=== PATIENT | male | born 1940 | race Caucasian/White ===

== ENCOUNTER 2020-09-24 12:24 | Inpatient (IN) | payer MEDICAID, OTHER ==
[~2020-09-24] VITALS: Ht 188 cm; Wt 101.9 kg
[2020-09-24] VITALS: BP 133/84
[2020-09-24] MEDS ORDERED: LEVETIRACETAM 500MG PREMIX 100 ML IV ONE (12:45)
[2020-09-24] MEDS ORDERED: LORAZEPAM 2MG/ML CPJ IV ONE (13:00)
[2020-09-24 13:17] LABS: BASOPHILS % 0.3 % (0.0-2.0); EOSINOPHILS % 1.5 % (0.0-5.0); HEMATOCRIT. 39.8 % (42.0-52.0); HEMOGLOBIN. 13.7 g/dL (14.0-18.0); LYMPHOCYTES % 19.1 % (20.0-50.0); MEAN CORPUSCULAR HEMOGLOBIN 30.2 pg (28.0-32.0); MEAN PLATELET VOLUME 7.8 fl (7.4-10.4); MONOCYTES % 6.9 % (2.0-8.0); NEUTROPHILS % 72.2 % (40.0-76.0); PLATELET 229 x1000/uL (130-400); RED BLOOD CELL COUNT 4.52 mill/uL (4.7-6.1); RED CELL DISTRIBUTION WIDTH 13.7 % (11.6-14.6)
[2020-09-24 13:23] LABS: CHLORIDE 107 mEq/L (98-107)
[2020-09-24 13:31] LABS: LDL CHOLESTEROL 126 mg/dL (5-100)
[2020-09-24 13:33] LABS: PARTIAL THROMBOPLASTIN TIME 26.2 sec (23.4-31.0); PROTHROMBIN TIME 11.2 sec (9.6-11.0)
[2020-09-24] MEDS ORDERED: IOHEXOL-350 100 ML BOTTLE ONE (14:40)
[2020-09-24] MEDS ORDERED: HYDRALAZINE 20MG/ML VIAL IV ONE (16:30)
[2020-09-24] MEDS ORDERED: HYDROCODONE/ACETAMINOPHEN 5/325MG TABLET PO PRN (17:15)
[2020-09-24] MEDS ORDERED: DIPHENHYDRAMINE 50MG/ML VIAL IV PRN (17:15)
[2020-09-24] MEDS ORDERED: IPRATROPIUM/ALBUTEROL 0.5-3(2.5)MG/3ML NEB HHN PRN (17:15)
[2020-09-24] MEDS ORDERED: ACETAMINOPHEN 325MG TABLET PO PRN (17:15)
[2020-09-24] MEDS ORDERED: ONDANSETRON HCL 4MG/2ML INJ IV PRN (17:15)
[2020-09-24] MEDS ORDERED: GUAIFENESIN 200MG/10ML SUGAR FREE UDC PO PRN (17:15)
[2020-09-24] MEDS ORDERED: LORAZEPAM 2MG/ML CPJ IV PRN (17:15)
[2020-09-24] MEDS ORDERED: CLONIDINE 0.1MG TABLET PO PRN (17:15)
[2020-09-24] MEDS ORDERED: HYDRALAZINE 20MG/ML VIAL IV PRN (17:15)
[2020-09-24] MEDS ORDERED: MORPHINE SULFATE 2 MG/ML CPJ (NOT FOR IM USE) IV PRN (17:15)
[2020-09-24] MEDS ORDERED: MAGNESIUM/ALUMINUM HYDROXIDE/SIMETHICONE 30ML UDC PO PRN (17:15)
[2020-09-24] MEDS ORDERED: DOCUSATE SODIUM 100MG CAPSULE PO PRN (17:15)
[2020-09-24] MEDS: ENOXAPARIN 40MG/0.4ML SYR SUBCUT SCH (18:00)
[2020-09-24] MEDS: LEVETIRACETAM 500MG TABLET PO SCH (21:36)
[2020-09-24] MEDS: SODIUM CHLORIDE 0.9% INJ 3ML FLUSH IVF SCH (22:52)
[2020-09-24 23:00] VITALS: BP 133/84
[2020-09-25] VITALS: BP 133/84
[2020-09-25 04:00] VITALS: BP 118/69
[2020-09-25] MEDS: SODIUM CHLORIDE 0.9% INJ 3ML FLUSH IVF SCH ×3 (05:24→20:48)
[2020-09-25 07:28] LABS: CHLORIDE 109 mEq/L (98-107)
[2020-09-25 07:34] LABS: BASOPHILS % 0.4 % (0.0-2.0); EOSINOPHILS % 2.5 % (0.0-5.0); HEMATOCRIT. 37.8 % (42.0-52.0); LYMPHOCYTES % 23.1 % (20.0-50.0); MEAN CORPUSCULAR VOLUME 86.9 fL (80.0-94.0); MEAN PLATELET VOLUME 8.3 fl (7.4-10.4); MONOCYTES % 9.6 % (2.0-8.0); NEUTROPHILS % 64.4 % (40.0-76.0); PLATELET 218 x1000/uL (130-400); RED BLOOD CELL COUNT 4.35 mill/uL (4.7-6.1); RED CELL DISTRIBUTION WIDTH 13.5 % (11.6-14.6)
[2020-09-25 07:42] LABS: CREATINE KINASE 35 IU/L (39-308)
[2020-09-25 07:45] LABS: CREATINE KINASE MB FRACTION < 1.0 ng/mL (0.5-3.6)
[2020-09-25 08:00] VITALS: BP 111/77
[2020-09-25] MEDS: LEVETIRACETAM 500MG TABLET PO SCH ×2 (08:47→20:48)
[2020-09-25 12:00] VITALS: BP 102/66
[2020-09-25 16:00] VITALS: BP 104/64
[2020-09-25] MEDS: ENOXAPARIN 40MG/0.4ML SYR SUBCUT SCH (18:46)
[2020-09-25 20:00] VITALS: BP 119/71
[2020-09-26] VITALS: BP 108/64
[2020-09-26 04:00] VITALS: BP 108/67
[2020-09-26 06:08] LABS: CHLORIDE 107 mEq/L (98-107)
[2020-09-26 06:16] LABS: BASOPHILS % 0.7 % (0.0-2.0); HEMATOCRIT. 37.4 % (42.0-52.0); LYMPHOCYTES % 21.6 % (20.0-50.0); MEAN CORPUSCULAR HEMOGLOBIN 30.4 pg (28.0-32.0); MEAN CORPUSCULAR VOLUME 87.1 fL (80.0-94.0); MEAN PLATELET VOLUME 8.1 fl (7.4-10.4); MONOCYTES % 9.8 % (2.0-8.0); NEUTROPHILS % 64.9 % (40.0-76.0); PLATELET 206 x1000/uL (130-400); RED BLOOD CELL COUNT 4.29 mill/uL (4.7-6.1); RED CELL DISTRIBUTION WIDTH 13.5 % (11.6-14.6)
[2020-09-26] MEDS: SODIUM CHLORIDE 0.9% INJ 3ML FLUSH IVF SCH ×2 (06:25→14:02)
[2020-09-26 08:00] VITALS: BP 115/68
[2020-09-26] MEDS: LEVETIRACETAM 500MG TABLET PO SCH (08:53)
[2020-09-26 12:00] VITALS: BP 128/93
[2020-09-26 16:00] VITALS: BP 109/56
[2020-09-26 16:18] VITALS: BP 109/59
== END 2020-09-26 18:05 | disposition home or self-care (01) | DRG 53 ==
LOC: ER 12:24 → 5WST 14:05 → ENRESERV 21:01
PROVIDERS: ADMIT Internal Medicine; ATTEND Internal Medicine
PROC: 4A10X4Z Monitoring of Central Nervous Electrical Activity, External Approach (ICD-10-PCS; principal; 2020-09-26)
DX: R56.9 Unspecified convulsions (principal); E46 Unspecified protein-calorie malnutrition; D64.9 Anemia, unspecified; B69.0 Cysticercosis of central nervous system; I10 Essential (primary) hypertension; R74.01 Elevation of levels of liver transaminase levels; H51.0 Palsy (spasm) of conjugate gaze; Z68.28 Body mass index [BMI] 28.0-28.9, adult
CPT/HCPCS: 36415; 70496; 70498; 71045; 80048; 80053; 82550; 82553; 83721; 84443; 84484; 85025; 86850; 86900; 93005; 93970; 95816; 97162; 99291; J1650; J1953; J2060; Q9967